=== PATIENT | female | born 1995 | race Caucasian/White ===

== ENCOUNTER 2020-03-30 13:32 | Emergency (ER) | payer OTHER, SELFPAY ==
--- NOTE | 2020-03-30 14:31 | ER ---
Nurse's Notes [facility] Name: Shelly Navarro Age: 24 yrs Sex: Female : 1995 Arrival Date: 03/30/2020 Time: 13:36 Bed Waiting Private MD: Diagnosis: ED Course: 03/30 13:36 Patient arrived in ED. mr 13:45 [facility] kb 13:45 Jovanny Cantu MD is Attending Physician. kb 14:35 [facility] Administered Medications: No medications were administered Outcome: 14:30 Patient left the ED. ca1 14:35 Patient left the ED. kb Signatures: Susan Castillo FNP-C FNP-Ckb Rivera, Mary mr Acob, Farzaneh, RN RN ca1
--- NOTE | 2020-03-30 14:36 | EDPHYS ---
Physician Documentation [facility] Name: Shelly Navarro Age: 24 yrs Sex: Female : 1995 Arrival Date: 03/30/2020 Time: 13:36 Bed Waiting Private MD: ED Physician MDM: 03/30 14:35 Medical screening is not applicable. kb Administered Medications: No medications were administered Disposition: 03/30/20 14:30 Patient left the facility Before Triage. - Patient left due to (see nurse's notes). Signatures: Susan Castillo, RENT COLLECTOR-C RENT COLLECTOR-Ckb Farzaneh Escobar RN RN ca1 Corrections: (The following items were deleted from the chart) 14:35 14:30 03/30/2020 14:30 Patient left the facility Before Triage. Reason stated they are kb leaving due to (see nurse's notes). ca1
--- OUTSIDE RECORDS SUMMARY | 2020-03-30 15:42 | XMS REPORT | Continuity of Care Document ---
:[address] [facility] t Address [facility] [place] [address] [place] [id number] Care Team Providers Name Role Phone Unavailable Unavailable Unavailable Problems This patient has no known problems. Allergies, Adverse Reactions, Alerts This patient has no known allergies or adverse reactions. Medications This patient has no known medications. Procedures This patient has no known procedures. Results This patient has no known results.
== END 2020-03-30 14:35 | disposition left against medical advice (07) ==
LOC: ER 13:32
DX: Z02.89 Encounter for other administrative examinations (principal); Z53.21 Procedure and treatment not carried out due to patient leaving prior to being seen by health care provider

== ENCOUNTER 2022-10-15 18:08 | Emergency (ER) | payer SELFPAY ==
--- OUTSIDE RECORDS SUMMARY | 2022-10-15 18:12 | XMS REPORT | Continuity of Care Document ---
:1995 Author Organization [facility] t Address [address] [place] [address] Care Team Providers Name Role Phone Pgy1 Attending Clinician Unavailable Payers Payer Name Policy Type Policy Number Effective Date Expiration Date S ource Problems Condition Condition Condition Status Onset Resolution Last Treating Co mments Source Name Details Category Date Date Treatment Clinician Date S/P tubal S/P tubal Disease Active Uni vers ligation ligation 4-27 ity of 00:00: [address] Obesity Obesity Disease Active Univers (BMI (BMI 3-09 ity of 30-39.9) 30-39.9) 00:00: [address] Incompeten Incompeten Disease Active 2016-09 U nivers t cervix t cervix 0-10 ity of 00:00: [address] Branch Cervical Cervical Disease Active Unive rs cerclage cerclage 1-05 ity of suture suture 00:00: [place] present present 00 Medical Branch High-risk High-risk Disease Active 2014-09 Uni vers 2-14 ity of 00:00: [place] 00 [facility] Branch History of History of Disease Active 2014-09 Overview : Univers miscarriag miscarriag 1-16 Formattin ity of e, e, 00:00: g of this [place] currently currently 00 note Medi major might be Bran ch different from the original. 19 weeks Nausea and Nausea and Disease Active 2014-09 U nivers vomiting vomiting 0-19 ity of during during 00:00: [place] 00 Medi major prior to prior to Branch 22 weeks 22 weeks gestation gestation Allergies, Adverse Reactions, Alerts This patient has no known allergies or adverse reactions. Social History Social Habit Start Date Stop Date Quantity Comments Source Alcohol intake 2018-10-01 2018-10-01 0 /d [facility] 00:00:00 00:00:00 Medical Branch Tobacco use and 2015-07-04 2015-07-04 Never used [facility] exposure 00:00:00 00:00:00 Medical Branch Sex Assigned At [birth year] [facility] 00:00:00 00:00:00 Medical Branch Smoking Status Start Date Stop Date Source Never smoker [facility] Medications Ordered Filled Start Stop Current Ordering Indication Dosage Frequency Signature Comments Components Source Medication Medication Date Date Medication? Clinician (SIG) Name Name ondansetron 2018- Yes [id number] 4mg Take 1 U nivers (ZOFRAN 1-10 tablet by ity of ODT) 4 mg 00:00: mouth [place] disintegrat 00 every 8 Medic al ing tablet (eight) Branch hours as needed for Nausea and Vomiting (N/V). HYDROcodone Yes 1{tbl} Take 1 Un ashlee -acetaminop 4-27 tablet by ity of hen (NORCO) 00:00: mouth [place] 10-325 mg 00 every 6 Medical tablet (six) Branch hours as needed for Pain (scale 1-3), Pain (scale 4-6) or Pain (scale 7-10). Immunizations Ordered Filled Immunization Date Status Comments Sour e Immunization Name Name Influenza Virus 2015-07-10 Completed Universit y of Vaccine Quad IM 3+ 00:00:00 [facility] Branch Procedures This patient has no known procedures. Encounters Start End Encounter Admission Attending Care Care Encounter Source Date/Time Date/Time Type Type Clinicians Facility Department ID 2021-10-04 2021-10-04 Telephone Pgy1 [facility]ERSIT [id number] Univers 00:00:00 00:00:00 Y HEALTH [id number] i ty of [id number] [id number] [facility] 113 Branch Results This patient has no known results.
[2022-10-15 19:55] LABS: SARS-COV-2 RT PCR NEGATIVE (NEGATIVE)
--- NOTE | 2022-10-15 20:36 | EDPHYS ---
Physician Documentation [facility] Name: Shelly Navarro Age: 27 yrs Sex: Female : 1995 Arrival Date: 10/15/2022 Time: 18:09 Bed DIS1 Private MD: ED Physician Jaron Hanley HPI: 10/15 20:00 This 27 yrs old Female presents to ER via Ambulatory with complaints of Neck Pain, kb <24hrs Old, Headache, Nausea. 20:00 The patient presents with sore throat. The patient describes throat pain as constant. kb Onset: The symptoms/episode began/occurred 2 day(s) ago. Severity of symptoms: At their worst the symptoms were moderate, in the emergency department the symptoms are unchanged. Modifying factors: The symptoms are alleviated by nothing, the symptoms are aggravated by swallowing, Patient's oral intake status: good Denies contact with similarly ill indivduals. Associated signs and symptoms: Pertinent positives: cough, fever, headache, nausea, Sore throat vomiting. The patient has not experienced similar symptoms in the past. The patient has not recently seen a physician. 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 Last tetanus immunization: < 10 years ago Flu vaccine is not up to date. It has been more than one year since last vaccine. - Social history:: Smoking status: Patient denies any tobacco usage or history of. Patient/guardian denies using alcohol, street drugs. ROS: 20:00 Cardiovascular: Negative for chest pain, palpitations, and edema. kb 20:00 Constitutional: Positive for fever, malaise. 20:00 ENT: Positive for sore throat. 20:00 Neck: Positive for pain with movement. 20:00 Respiratory: Positive for cough. 20:00 Abdomen/GI: Positive for nausea and vomiting. 20:00 All other systems are negative. Exam: 20:01 Constitutional: This is a well developed, well nourished patient who is awake, alert, kb and in no acute distress. Head/Face: Normocephalic, atraumatic. Neck: Trachea midline, no thyromegaly or masses palpated, and no cervical lymphadenopathy. Supple, full range of motion without nuchal rigidity, or vertebral point tenderness. No Meningismus. Cardiovascular: Regular rate and rhythm with a normal S1 and S2. No gallops, murmurs, or rubs. No pulse deficits. Respiratory: Respirations even and unlabored. No increased work of breathing. Talking in full sentences Abdomen/GI: Soft, non-tender. No distention Skin: Warm, dry with normal turgor. Normal color. MS/ Extremity: Pulses equal, no cyanosis. Neurovascular intact. Full, normal range of motion. Neuro: Awake and alert, GCS 15, oriented to person, place, time, and situation. Moves all extremities. Normal gait. 20:01 ENT: Posterior pharynx: Airway: normal, no evidence of obstruction, Tonsils: bilaterally enlarged, with erythema, Uvula: normal, midline, swelling, that is mild, erythema, that is moderate, exudate, is not appreciated. Vital Signs: 19:21 BP 106 / 71; Pulse 117; Resp 20; Temp 100.7; Pulse Ox 96% on R/A; Weight 83.91 kg; pf1 Height 5 ft. 2 in. (157.48 cm); Pain 10/10; 19:21 Body Mass Index 33.84 (83.91 kg, 157.48 cm) pf1 MDM: 19:02 Patient medically screened. kb 20:00 Data reviewed: vital signs, nurses notes. kb 20:02 Differential diagnosis: pharyngitis, tonsillitis, strep. kb 20:35 Counseling: I had a detailed discussion with the patient and/or guardian regarding: the kb historical points, exam findings, and any diagnostic results supporting the discharge/admit diagnosis, lab results, the need for outpatient follow up, a family practitioner, to return to the emergency department if symptoms worsen or persist or if there are any questions or concerns that arise at home. 10/15 19: Order name: Strep; Complete Time: 20:36 kb 10/15 19:02 Order name: COVID-19/FLU A+B; Complete Time: 19:59 kb Administered Medications: 20:54 Not Given (Patient Refused): GI Cocktail without - (Maalox Suspension 30 ml, bb Lidocaine Liquid 2 % 15 ml) PO once 20:54 Drug: Ondansetron 4 mg Route: PO; bb 20:55 Follow up: Response: Medication administered at discharge. bb 20:54 Drug: Ibuprofen 600 mg Route: PO; bb 20:55 Follow up: Response: Medication administered at discharge. bb 20:54 Drug: Augmentin (Amoxicillin-Clavulanate) 875 mg Route: PO; bb 20:54 Follow up: Response: Medication administered at discharge. bb Disposition Summary: 10/15/22 20:35 Discharge Ordered Location: Home kb Condition: Stable kb Diagnosis - Streptococcal pharyngitis kb Followup: kb - With: Emergency Department - When: As needed - Reason: Worsening of condition Followup: kb - With: Private Physician - When: 2 - 3 days - Reason: Recheck today's complaints, Continuance of care, Re-evaluation by your physician Discharge Instructions: - Discharge Summary Sheet kb - Strep Throat, Adult, [id number] kb Forms: - Medication Reconciliation Form kb - Thank You Letter kb - Antibiotic Education kb - Prescription Opioid Use kb Prescriptions: - Augmentin 875-125 mg Oral Tablet - take 1 tablet by ORAL route every 12 hours for 10 days; 20 tablet; Refills: 0, kb Product Selection Permitted - ondansetron 4 mg Oral - take 1 tablet by SUBLINGUAL route every 8 hours As needed; 15 tablet; Refills: kb 0, Product Selection Permitted Signatures: Dispatcher [employer] EDIA Susan Castillo, ORACLE ARCHITECTPaytonC Ewelina Carter RN RN Danni loredo RN RN pf1 Corrections: (The following items were deleted from the chart) 20:01 20:00 Neck: Positive for pain with movement, pain at rest, kb kb
--- NOTE | 2022-10-15 20:36 | ER ---
Nurse's Notes [facility] Name: Shelly Navarro Age: 27 yrs Sex: Female : 1995 Arrival Date: 10/15/2022 Time: 18:09 Bed DIS1 Private MD: Diagnosis: Streptococcal pharyngitis Presentation: 10/15 19:21 Chief complaint: Patient states: C/O posterior neck pain of 10, headache pain, fever, pf1 cough with nausea and vomiting x 1, onset yesterday. Coronavirus screen: Vaccine status: Patient reports being unvaccinated. Client denies travel out of the [place] in the last 14 days. Client presents with at least one sign or symptom that may indicate coronavirus-19. Standard/surgical mask placed on the client. Ebola Screen: Patient negative for fever greater than or equal to 101.5 degrees Fahrenheit, and additional compatible Ebola Virus Disease symptoms. Acute neurological deficit: none identified. Initial Sepsis Screen: Does the patient meet any 2 criteria? No. Patient's initial sepsis screen is negative. Does the patient have a suspected source of infection? No. Patient's initial sepsis screen is negative. Risk Assessment: Do you want to hurt yourself or someone else? Patient reports no desire to harm self or others. Onset of symptoms was October 14, 2022. 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 Last tetanus immunization: < 10 years ago Flu vaccine is not up to date. It has been more than one year since last vaccine. - Social history:: Smoking status: Patient denies any tobacco usage or history of. Patient/guardian denies using alcohol, street drugs. Assessment: 21:00 Reassessment: Patient is alert, oriented x 3, equal unlabored respirations, skin bb warm/dry/pink. pt seen by this RN at discharge pt verbalized understanding of and agrees to plan of care discharge instructions given pt ambulated with steady gait to exit accompanied by family. Vital Signs: 19:21 BP 106 / 71; Pulse 117; Resp 20; Temp 100.7; Pulse Ox 96% on R/A; Weight 83.91 kg; pf1 Height 5 ft. 2 in. (157.48 cm); Pain 10/10; 19:21 Body Mass Index 33.84 (83.91 kg, 157.48 cm) pf1 ED Course: 18:09 Patient arrived in ED. as 18:10 [facility]NP-C [facility] kb 18:11 Jaron Hanley DO is Attending Physician. kb 19:29 Triage completed. pf1 Administered Medications: 20:54 Not Given (Patient Refused): GI Cocktail without - (Maalox Suspension 30 ml, bb Lidocaine Liquid 2 % 15 ml) PO once 20:54 Drug: Ondansetron 4 mg Route: PO; bb 20:55 Follow up: Response: Medication administered at discharge. bb 20:54 Drug: Ibuprofen 600 mg Route: PO; bb 20:55 Follow up: Response: Medication administered at discharge. bb 20:54 Drug: Augmentin (Amoxicillin-Clavulanate) 875 mg Route: PO; bb 20:54 Follow up: Response: Medication administered at discharge. bb Outcome: 20:35 Discharge ordered by MD. kb 21:01 Discharged to home ambulatory, with family. bb 21:01 Condition: stable 21:01 Discharge instructions given to patient, Instructed on discharge instructions, follow up and referral plans. medication usage, Demonstrated understanding of instructions, follow-up care, medications, Prescriptions given X 2. 21:01 Patient left the ED. bb Signatures: Susan Castillo FNP-C FNP-Ckb Martinez, Amelia as Ewelina Murry, RN RN bb Danni rodriguez RN RN pf1
[2022-10-15] MEDS ORDERED: MAGNES/ALUMIN/SIMET 30ML UCUP ONE (20:47)
[2022-10-15] MEDS ORDERED: AMOX/K CLAV 875 MG TAB ONE (20:47)
[2022-10-15] MEDS ORDERED: LIDOCAINE VISCOUS 2% SOLN 15 ML UDC ONE (20:48)
[2022-10-15] MEDS ORDERED: IBUPROFEN 200 MG TAB PO ONE (20:48)
[2022-10-15] MEDS ORDERED: ONDANSETRON 4 MG (ODT) TAB ONE (20:55)
[2022-10-15 21:16] VITALS: BP 106/71; TEMP 100.7; O2SAT 96
== END 2022-10-15 21:01 | disposition home or self-care (01) ==
LOC: ER 18:08
DX: J02.0 Streptococcal pharyngitis (principal); Z20.822 Contact with and (suspected) exposure to COVID-19
CPT/HCPCS: 0240U; 87081; 99283; Q0162

== ENCOUNTER 2023-04-01 14:33 | Emergency (ER) | payer SELFPAY ==
--- OUTSIDE RECORDS SUMMARY | 2023-04-01 14:42 | XMS REPORT | Continuity of Care Document ---
:1995 Author Organization [facility] [place] [facility] t Address [address] [facility] [address] [place] [address] Care Team Providers Name Role Phone Pgy1 Attending Clinician Unavailable Payers Payer Name Policy Type Policy Number Effective Date Expiration Date S ource Problems Condition Condition Condition Status Onset Resolution Last Treating Co mments Source Name Details Category Date Date Treatment Clinician Date S/P tubal S/P tubal Disease Active Uni vers ligation ligation 4-27 ity of 00:00: [address] Obesity Obesity Disease Active Univers (BMI (BMI 3-09 ity of 30-39.9) 30-39.9) 00:00: [place] [facility] Incompeten Incompeten Disease Active 2016-09 U nivers t cervix t cervix 0-10 ity of 00:00: [address] Cervical Cervical Disease Active Unive rs cerclage cerclage 1-05 ity of suture suture 00:00: [place] present present 00 [facility] High-risk High-risk Disease Active 2014-09 Uni vers 2-14 ity of 00:00: [place] 00 [facility] History of History of Disease Active 2014-09 Overview : Univers miscarriag miscarriag 1-16 Formattin ity of e, e, 00:00: g of this [place] currently currently 00 note Medi major might be Bran ch different from the original. 19 weeks Nausea and Nausea and Disease Active 2014-09 U nivers vomiting vomiting 0-19 ity of during during 00:00: [place] 00 Medi major prior to prior to Branch 22 weeks 22 weeks gestation gestation Allergies, Adverse Reactions, Alerts This patient has no known allergies or adverse reactions. Social History Social Habit Start Date Stop Date Quantity Comments Source Alcohol intake 2018-10-01 2018-10-01 0 /d [facility] 00:00:00 00:00:00 Medical Branch Tobacco use and 2015-07-04 2015-07-04 Never used [facility] exposure 00:00:00 00:00:00 Medical Branch Sex Assigned At [birth year] [facility] 00:00:00 00:00:00 Medical Branch Smoking Status Start Date Stop Date Source Never smoker [facility] Branch Medications Ordered Filled Start Stop Current Ordering Indication Dosage Frequency Signature Comments Components Source Medication Medication Date Date Medication? Clinician (SIG) Name Name ondansetron Yes [id number] 4mg Take 1 U nivers (ZOFRAN 1-10 [...] y of Vaccine Quad IM 3+ 00:00:00 [facility] YRS Branch Procedures This patient has no known procedures. Encounters Start End Encounter Admission Attending Care Care Encounter Source Date/Time Date/Time Type Type Clinicians Facility Department ID 2021-10-04 2021-10-04 Telephone Pgy1 UNIVERSIT [id number] Univers 00:00:00 00:00:00 Y HEALTH [id number] i ty of CL[place] [id number] [id number] Medi major 113 Branch Results This patient has no known results.
--- NOTE | 2023-04-01 16:25 | ER ---
Nurse's Notes [facility] Name: Shelly Navarro Age: 27 yrs Sex: Female : 1995 Arrival Date: 04/01/2023 Time: 14:33 Bed 12 Private MD: Diagnosis: Breast tenderness Presentation: 04/01 14:45 Chief complaint: Patient states: she took an at home test today, and it was ap3 negative. however her says he thinks it was positive and wanted her to come get evaluated due to hx of tubal pregnancies. patient also reports having bilateral breast tenderness. Coronavirus screen: At this time, the client does not indicate any symptoms associated with coronavirus-19. Ebola Screen: No symptoms or risks identified at this time. Initial Sepsis Screen: Does the patient meet any 2 criteria? No. Patient's initial sepsis screen is negative. Does the patient have a suspected source of infection? No. Patient's initial sepsis screen is negative. Risk Assessment: Do you want to hurt yourself or someone else? Patient reports no desire to harm self or others. Onset of symptoms was April 01, 2023. 14:45 Method Of Arrival: Ambulatory ap3 14:45 Acuity: SANDEEP 4 ap3 Triage Assessment: 14:47 General: Appears in no apparent distress. Behavior is calm, cooperative. Pain: ap3 Complains of pain in right breast and left breast Pain currently is 4 out of 10 on a pain scale. at worst was 10 out of 10 on a pain scale. Neuro: Level of Consciousness is awake, alert, obeys commands, Oriented to person, place, time, situation. Cardiovascular: Patient's skin is warm and dry. Respiratory: Airway is patent Respiratory effort is even, unlabored, Respiratory pattern is regular, symmetrical. 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 - Social history:: Smoking status: Patient denies any tobacco usage or history of. Screenin:47 [facility] ED Fall Risk Assessment (Adult) History of falling in the last 3 months, ap3 including since admission No falls in past 3 months (0 pts). Abuse screen: Denies threats or abuse. Nutritional screening: No deficits noted. Tuberculosis screening: No symptoms or risk factors identified. Assessment: 16:42 Reassessment: Patient and/or family updated on plan of care and expected duration. Pain cm10 level reassessed. Patient is alert, oriented x 3, equal unlabored respirations, skin warm/dry/pink. Patient states feeling better. Patient states symptoms have improved. Vital Signs: 14:45 BP 120 / 75; Pulse 64; Resp 17; Temp 98.1; Pulse Ox 100% ; Weight 90.72 kg; Height 5 ap3 ft. 2 in. ; Pain 3/10; 14:45 Body Mass Index 36.58 (90.72 kg, 157.48 cm) ap3 14:45 Pain Scale: Adult ap3 ED Course: 14:37 Patient arrived in ED. im 14:38 Joie Orellana [facility]NP-C [facility] snw 14:39 Boyb Purvis MD is Attending Physician. snw 14:47 Triage completed. ap3 14:48 Arm band placed on right wrist. ap3 14:55 Inserted saline lock: 22 gauge in left antecubital area, using aseptic technique. ap3 14:57 Quantitative Hcg Sent. ap3 15:56 Patient has correct armband on for positive identification. Bed in low position. Call ap3 light in reach. Adult w/ patient. 16:42 Provided Education on: N/A. cm10 16:42 No provider procedures requiring assistance completed. IV discontinued, intact, cm10 bleeding controlled, No redness/swelling at site. Pressure dressing applied. Administered Medications: No medications were administered Medication: 15:55 VIS not applicable for this client. ap3 Outcome: 16:25 Discharge ordered by . snw 16:42 Discharged to home ambulatory, with significant other. cm10 16:42 Condition: good 16:42 Discharge instructions given to patient, Instructed on discharge instructions, follow up and referral plans. Demonstrated understanding of instructions, follow-up care. 16:42 Patient left the ED. cm10 Signatures: Joie Orellana FNP-C FNP-Csnw Lena Gold RN RN ap3 Gely Quinn Clarissa, RN RN cm10
--- NOTE | 2023-04-01 16:25 | EDPHYS ---
Physician Documentation [facility] Name: Shelly Navarro Age: 27 yrs Sex: Female : 1995 Arrival Date: 04/01/2023 Time: 14:33 Bed 12 Private MD: ED Physician Boby Purvis HPI: 04/01 15:24 This 27 yrs old Female presents to ER via Ambulatory with complaints of Breast Problem. snw 15:24 Onset: The symptoms/episode began/occurred acutely. Modifying factors: The patient snw symptoms are alleviated by nothing, the patient symptoms are aggravated by stimulation. It is unknown whether or not the patient has had similar symptoms in the past. The patient has not recently seen a physician. breast tenderness, negative UPT this am but s.o. states he saw a fine line.. 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 - Social history:: Smoking status: Patient denies any tobacco usage or history of. ROS: 15:24 Constitutional: Negative for fever, chills, and weight loss, Eyes: Negative for injury, snw pain, redness, and discharge, ENT: Negative for injury, pain, and discharge, Neck: Negative for injury, pain, and swelling, Cardiovascular: Negative for chest pain, palpitations, and edema, Respiratory: Negative for shortness of breath, cough, wheezing, and pleuritic chest pain, Abdomen/GI: Negative for abdominal pain, nausea, vomiting, diarrhea, and constipation, Back: Negative for injury and pain, : Negative for injury, bleeding, discharge, and swelling, MS/Extremity: Negative for injury and deformity, Skin: Negative for injury, rash, and discoloration, Neuro: Negative for headache, weakness, numbness, tingling, and seizure, Psych: Negative for depression, anxiety, suicide ideation, homicidal ideation, and hallucinations. Exam: 16:23 Constitutional: This is a well developed, well nourished patient who is awake, alert, snw and in no acute distress. Head/Face: Normocephalic, atraumatic. Eyes: Pupils equal round and reactive to light, extra-ocular motions intact. Lids and lashes normal. Conjunctiva and sclera are non-icteric and not injected. Cornea within normal limits. Periorbital areas with no swelling, redness, or edema. ENT: Nares patent. No nasal discharge, no septal abnormalities noted. Tympanic membranes are normal and external auditory canals are clear. Oropharynx with no redness, swelling, or masses, exudates, or evidence of obstruction, uvula midline. Mucous membranes moist. Neck: Trachea midline, no thyromegaly or masses palpated, and no cervical lymphadenopathy. Supple, full range of motion without nuchal rigidity, or vertebral point tenderness. No Meningismus. Chest/axilla: Normal chest wall appearance and motion. Nontender with no deformity. No lesions are appreciated. Cardiovascular: Regular rate and rhythm with a normal S1 and S2. No gallops, murmurs, or rubs. Normal PMI, no JVD. No pulse deficits. Respiratory: Lungs have equal breath sounds bilaterally, clear to auscultation and percussion. No rales, rhonchi or wheezes noted. No increased work of breathing, no retractions or nasal flaring. Abdomen/GI: Soft, non-tender, with normal bowel sounds. No distension or tympany. No guarding or rebound. No evidence of tenderness throughout. Back: No spinal tenderness. No costovertebral tenderness. Full range of motion. Skin: Warm, dry with normal turgor. Normal color with no rashes, no lesions, and no evidence of cellulitis. MS/ Extremity: Pulses equal, no cyanosis. Neurovascular intact. Full, normal range of motion. Neuro: Awake and alert, GCS 15, oriented to person, place, time, and situation. Cranial nerves II-XII grossly intact. Motor strength 5/5 in all extremities. Sensory grossly intact. Cerebellar exam normal. Normal gait. Psych: Awake, alert, with orientation to person, place and time. Behavior, mood, and affect are within normal limits. Vital Signs: 14:45 BP 120 / 75; Pulse 64; Resp 17; Temp 98.1; Pulse Ox 100% ; Weight 90.72 kg; Height 5 ap3 ft. 2 in. ; Pain 3/10; 14:45 Body Mass Index 36.58 (90.72 kg, 157.48 cm) ap3 14:45 Pain Scale: Adult ap3 MDM: 15:06 Patient medically screened. snw 15:25 Differential diagnosis: , premenstrual. Data reviewed: vital signs, nurses snw notes. Counseling: I had a detailed discussion with the patient and/or guardian regarding: the historical points, exam findings, and any diagnostic results supporting the discharge/admit diagnosis, lab results. Special discussion: Based on the history and exam findings, there is no indication for further emergent testing or inpatient evaluation. I discussed with the patient/guardian the need to see the primary care provider for further evaluation of the symptoms. 16:23 Historians other than the Patient: Spouse/Significant Other: Signif other. Awaiting: snw labs results. ED course: HCG <1. 04/01 14:50 Order name: Quantitative Hcg; Complete Time: 16:04 ap3 Administered Medications: No medications were administered Disposition: 17:37 I agree with the assessment and plan of care. I reviewed the patient's care provided by flores the Advanced Practice Provider and agree with the diagnosis and treatment plan. Disposition Summary: 04/01/23 16:25 Discharge Ordered Location: Home snw Condition: Stable snw Diagnosis - Breast tenderness snw Followup: snw - With: Emergency Department - When: As needed - Reason: Worsening of condition Followup: snw - With: Private Physician - When: 2 - 3 days - Reason: Recheck today's complaints, Continuance of care, Re-evaluation by your physician Discharge Instructions: - Discharge Summary Sheet snw - Hyperthyroidism snw - Hypothyroidism snw - Breast Tenderness snw - Rehydration, Adult snw Forms: - Medication Reconciliation Form snw - Thank You Letter snw - Antibiotic Education snw - Prescription Opioid Use snw - Patient Portal Instructions.htm snw Signatures: Dispatcher [employer] Joie Hook FNP-C YARDAGE ESTIMATOR-Lena Mcqueen RN RN ap3 Boby Purvis MD MD [id number]
[2023-04-01 18:32] VITALS: BP 120/75; TEMP 98.1; O2SAT 100
== END 2023-04-01 16:42 | disposition home or self-care (01) ==
LOC: ER 14:33
DX: N64.4 Mastodynia (principal)
CPT/HCPCS: 36415; 84702; 99283

== ENCOUNTER 2023-07-13 16:52 | Emergency (ER) | payer SELFPAY ==
--- OUTSIDE RECORDS SUMMARY | 2023-07-13 16:55 | XMS REPORT | Continuity of Care Document ---
:1995 Author Organization [facility] t Address [address] [place] [address] Care Team Providers Name Role Phone Pgy1 Attending Clinician Unavailable Payers Payer Name Policy Type Policy Number Effective Date Expiration Date S ource Problems Condition Condition Condition Status Onset Resolution Last Treating Co mments Source Name Details Category Date Date Treatment Clinician Date S/P tubal S/P tubal Disease Active Uni vers ligation ligation 4-27 ity of 00:00: [address] Obesity Obesity Disease Active Univers (BMI (BMI 3-09 ity of 30-39.9) 30-39.9) 00:00: [place] [facility] Incompeten Incompeten Disease Active 2016-09 U nivers t cervix t cervix 0-10 ity of 00:00: [address] Cervical Cervical Disease Active Unive rs cerclage cerclage 1-05 ity of suture suture 00:00: [place] present present 00 [facility] High-risk High-risk Disease Active 2014-09 Uni vers 2-14 ity of 00:00: [place] 00 [facility] History of History of Disease Active 2014-09 Overview : Univers miscarriag miscarriag 1-16 Formattin ity of e, e, 00:00: g of this [place] currently currently 00 note Medi major might be Bran ch different from the original. 19 weeks Nausea and Nausea and Disease Active 2014-09 U nivers vomiting vomiting 0-19 ity of during during 00:00: [place] 00 Medi major prior to prior to [facility] 22 weeks 22 weeks gestation gestation Allergies, Adverse Reactions, Alerts This patient has no known allergies or adverse reactions. Social History Social Habit Start Date Stop Date Quantity Comments Source Alcohol intake 2018-10-01 2018-10-01 0 /d [facility] 00:00:00 00:00:00 [facility] Tobacco use and 2015-07-04 2015-07-04 Never used [facility] exposure 00:00:00 00:00:00 [facility] Sex Assigned At [birth year] [facility] 00:00:00 00:00:00 [facility] Smoking Status Start Date Stop Date Source Never smoker [facility] Medications Ordered Filled Start Stop Current Ordering Indication Dosage Frequency Signature Comments Components Source Medication Medication Date Date Medication? Clinician (SIG) Name Name ondansetron Yes [id number] 4mg Take 1 U nivers (ZOFRAN 1-10 [...] Pain (scale 4-6) or Pain (scale 7-10). Procedures This patient has no known procedures. Encounters Start End Encounter Admission Attending Care Care Encounter Source Date/Time Date/Time Type Type Clinicians Facility Department ID 2021-10-04 2021-10-04 Telephone Pgy1 [facility] [id number] [facility] 00:00:00 00:00:00 [facility] [id number] i ty of CLINICS [id number] David s [id number] Medi major 113 Branch Results This patient has no known results.
--- NOTE | 2023-07-13 17:32 | ER ---
Nurse's Notes [facility] Name: Shelly Navarro Age: 27 yrs Sex: Female : 1995 Arrival Date: 07/13/2023 Time: 16:52 Bed IW8 Private MD: Diagnosis: Acute sinusitis, unspecified Presentation: 07/13 17:27 Chief complaint: Patient states: Ear pain, fever, chills, N/V/D, congestion, cough for ll1 1 week. Coronavirus screen: Vaccine status: Patient reports receiving the 2nd dose of the covid vaccine. Client denies travel out of the [place] in the last 14 days. congestion, cough unrelated to allergies, fatigue, Client presents with at least one sign or symptom that may indicate coronavirus-19. Standard/surgical mask placed on the client. Ebola Screen: Patient denies travel to an Ebola-affected area in the 21 days before illness onset. Resp Distress? No respiratory distress is noted at this time. Initial Sepsis Screen: Does the patient meet any 2 criteria? No. Patient's initial sepsis screen is negative. Does the patient have a suspected source of infection? Yes: Productive cough/pneumonia. Risk Assessment: Do you want to hurt yourself or someone else? Patient reports no desire to harm self or others. Onset of symptoms was July 06, 2023. 17:27 Method Of Arrival: Ambulatory 1 17:27 Acuity: SANDEEP 4 ll1 Triage Assessment: 17:30 General: Appears in no apparent distress. Behavior is calm, cooperative. Pain: Pain hb currently is 5 out of 10 on a pain scale. Neuro: Level of Consciousness is awake, alert, obeys commands, Oriented to person, place, time, situation. Cardiovascular: Patient's skin is warm and dry. Respiratory: Respiratory effort is even, unlabored, Respiratory pattern is regular, symmetrical. Historical: - Allergies: 17:27 No Known Allergies; ll1 - PMHx: 17:27 headache; ll1 - PSHx: 17:27 tubal ligation; ll1 - Immunization history:: Adult Immunizations up to date. - Social history:: Smoking status: Patient denies any tobacco usage or history of. Assessment: 17:00 General: See triage. hb Vital Signs: 17:27 BP 125 / 77; Pulse 108; Resp 17; Temp 100.6; Pulse Ox 97% on R/A; Weight 90.72 kg; ll1 Height 5 ft. 2 in. ; Pain 5/10; 17:27 Body Mass Index 36.58 (90.72 kg, 157.48 cm) ll1 17:27 Pain Scale: Adult ll1 ED Course: 16:56 Patient arrived in ED. ts1 17:00 Susan Catsillo F[facility]-C [facility]. kb 17:00 Gregorio Miles MD is Attending Physician. kb 17:29 Triage completed. ll1 17:29 Arm band placed on. ll1 17:40 Patient has correct armband on for positive identification. hb 17:45 No provider procedures requiring assistance completed. Patient did not have IV access hb during this emergency room visit. Administered Medications: 17:41 Drug: Acetaminophen PO 1000 mg PO once Route: PO; ll1 17:41 Drug: Amoxicillin-Clavulanate PO 875 mg PO once Route: PO; ll1 17:41 Drug: predniSONE PO 40 mg PO once Route: PO; ll1 17:41 Drug: Ondansetron Oral Disintegrating Tablet Oral Disintegrating Tablet 4 mg PO once ll1 Route: PO; Outcome: 17:32 Discharge ordered by MD. kb 17:40 Discharged to home ambulatory, hb 17:40 Condition: stable 17:40 Discharge instructions given to patient, Instructed on discharge instructions, follow up and referral plans. medication usage, Demonstrated understanding of instructions, follow-up care, medications, Prescriptions given X 3, 17:43 Patient left the ED. ll1 Signatures: Susan Castillo FNP-C FNP-Ckb Baxter, Heather, RN RN Sunni Lewis RN RN ll1 Chanda Lam PAS [facility] ts1
--- NOTE | 2023-07-13 17:32 | EDPHYS ---
Physician Documentation [facility] Name: Shelly Navarro Age: 27 yrs Sex: Female : 1995 Arrival Date: 07/13/2023 Time: 16:52 Bed IW8 Private MD: ED Physician Gregorio Miles HPI: 07/13 17:29 This 27 yrs old Female presents to ER via Unassigned with complaints of Cough, kb Congestion, Nausea/Vomiting/Diarrhea. 17:29 Patient is a 27-year-old female with no medical history presents for cough, congestion, kb fever, earache, nausea, vomiting, diarrhea for 1 week. States everyone in the household has been sick but her symptoms have been persisting.. Historical: - Allergies: 17:27 No Known Allergies; ll1 - PMHx: 17:27 headache; ll1 - PSHx: 17:27 tubal ligation; ll1 - Immunization history:: Adult Immunizations up to date. - Social history:: Smoking status: Patient denies any tobacco usage or history of. ROS: 17:29 Cardiovascular: Negative for chest pain, palpitations, and edema, kb 17:29 Constitutional: Positive for chills, fever, malaise, 17:29 ENT: Positive for ear pain, sinus congestion, 17:29 Respiratory: Positive for cough, 17:29 Abdomen/GI: Positive for nausea, vomiting, and diarrhea, Negative for abdominal pain, 17:29 All other systems are negative, Exam: 17:29 Constitutional: This is a well developed, well nourished patient who is awake, alert, kb and in no acute distress. Head/Face: Normocephalic, atraumatic. ENT: Moist Mucous membranes Cardiovascular: Regular rate Respiratory: Respirations even and unlabored. No increased work of breathing. Talking in full sentences Abdomen/GI: Soft, non-tender. No distention Skin: Warm, dry with normal turgor. Normal color. MS/ Extremity: Pulses equal, no cyanosis. Neurovascular intact. Full, normal range of motion. Neuro: Awake and alert, GCS 15, oriented to person, place, time, and situation. Moves all extremities. Normal gait. 17:29 ENT: TM's: bulging, on the right, erythema, that is mild, bilaterally, fluid levels, bilaterally, Vital Signs: 17:27 BP 125 / 77; Pulse 108; Resp 17; Temp 100.6; Pulse Ox 97% on R/A; Weight 90.72 kg; ll1 Height 5 ft. 2 in. ; Pain 5/10; 17:27 Body Mass Index 36.58 (90.72 kg, 157.48 cm) ll1 17:27 Pain Scale: Adult ll1 MDM: 17:00 Patient medically screened. kb 17:30 Differential Diagnosis: Viral Syndrome Other Flu, COVID, strep, otitis media, otitis kb externa, gastroenteritis, URI, sinusitis. Data reviewed: vital signs, nurses notes. Test considered but Not performed: Labs: Flu, COVID and strep test considered but result would not change course of treatment.. Counseling: I had a detailed discussion with the patient and/or guardian regarding the historical points, exam findings, and any diagnostic results supporting the discharge/admit diagnosis, the need for outpatient follow up, a family practitioner, to return to the emergency department if symptoms worsen or persist or if there are any questions or concerns that arise at home. Administered Medications: 17:41 Drug: Acetaminophen PO 1000 mg PO once Route: PO; ll1 17:41 Drug: Amoxicillin-Clavulanate PO 875 mg PO once Route: PO; ll1 17:41 Drug: predniSONE PO 40 mg PO once Route: PO; ll1 17:41 Drug: Ondansetron Oral Disintegrating Tablet Oral Disintegrating Tablet 4 mg PO once ll1 Route: PO; Disposition: 07/14 10:01 Co-signature as Attending Physician, Gregorio Miles MD I reviewed the patient's care rn provided by the Advanced Practice Provider and agree with the diagnosis and treatment plan. Disposition Summary: 07/13/23 17:32 Discharge Ordered Notes: Location: Home kb Condition: Stable kb Diagnosis - Acute sinusitis, unspecified kb Followup: kb - With: Emergency Department - When: As needed - Reason: Worsening of condition Followup: kb - With: Private Physician - When: 2 - 3 days - Reason: Recheck today's complaints, Continuance of care, Re-evaluation by your physician Discharge Instructions: - Discharge Summary Sheet kb - Sinusitis, Adult, [id number] kb Forms: - Medication Reconciliation Form kb - Thank You Letter kb - Antibiotic Education kb - Prescription Opioid Use kb - Patient Portal Instructions kb - Leadership Thank You Letter kb Prescriptions: - Augmentin 875-125 mg Oral Tablet - take 1 tablet ORAL route every 12 hours for 10 days; 20 tablet; Refills: 0, kb Product Selection Permitted - Prednisone 20 mg Oral Tablet - take 1 tablet ORAL route once daily for 5 days; 5 tablet; Refills: 0, Product kb Selection Permitted - Zofran 4 mg Oral tablet - take 1 tablet ORAL route every 6 hours As needed; 12 tablet; Refills: 0, kb Product Selection Permitted Signatures: Susan Castillo FNP-C FNP-Gregorio Moore MD MD rn Baxter, Heather, RN RN Sunni Lewis RN RN ll1
[2023-07-13] MEDS ORDERED: AMOX/K CLAV 875 MG TAB ONE (17:51)
[2023-07-13] MEDS ORDERED: ONDANSETRON 4 MG (ODT) TAB ONE (17:51)
[2023-07-13] MEDS ORDERED: ACETAMINOPHEN 500 MG TAB ONE (17:51)
[2023-07-13] MEDS ORDERED: predniSONE 20 MG TAB ONE (17:51)
== END 2023-07-13 17:43 | disposition home or self-care (01) ==
LOC: ER 16:52
DX: J01.90 Acute sinusitis, unspecified (principal)
CPT/HCPCS: 99283; J7512; Q0162